=== PATIENT | female | born 2000 | race Caucasian/White ===

== ENCOUNTER 2020-07-27 12:12 | Emergency (ER) | payer MEDICAID ==
[~2020-07-27] VITALS: Ht 157.5 cm; Wt 86.5 kg
[2020-07-27 12:56] VITALS: BP 120/67
[2020-07-27 13:46] LABS: URINE HCG NEGATIVE (NEG)
[2020-07-27 13:54] LABS: COLOR,URINE YELLOW (Yellow); GLUCOSE, URINE NEGATIVE (Neg); KETONES,URINE NEGATIVE (Neg); LEUKOCYTE ESTERASE ,URINE NEGATIVE (Neg); NITRITES, URINE NEGATIVE (Neg); OCCULT BLOOD,URINE NEGATIVE (Neg); PH,URINE 8.5 (4.8-8.0); PROTEIN,URINE NEGATIVE (Neg)
[2020-07-27 14:02] LABS: CLARITY,URINE CLEAR (Clear); UA COLLECTION TYPE CLN CATCH MIDSTREAM
== END 2020-07-27 18:20 | disposition left against medical advice (07) ==
LOC: ER 12:12
DX: M54.5 Low back pain (principal)
CPT/HCPCS: 72100; 81003; 81025; 99284

== ENCOUNTER 2023-05-09 22:17 | Emergency (ER) | payer MEDICAID ==
[~2023-05-09] VITALS: Ht 157.5 cm; Wt 100.1 kg
[2023-05-09 22:26] VITALS: BP 99/76; PULSE 120; RESP 18; TEMP 98.8; O2SAT 98
[2023-05-09] MEDS ORDERED: LIDOcaine 1% 30ml preserv. free vial IJ STA (22:39)
== END 2023-05-09 23:42 | disposition home or self-care (01) ==
LOC: ER 22:18
DX: S31.811A Laceration without foreign body of right buttock, initial encounter (principal); X58.XXXA Exposure to other specified factors, initial encounter; Y93.89 Activity, other specified; Y92.89 Other specified places as the place of occurrence of the external cause; Y99.8 Other external cause status
CPT/HCPCS: 12002; 99284; A6449

== ENCOUNTER 2023-05-22 10:51 | Emergency (ER) | payer MEDICAID ==
[~2023-05-22] VITALS: Ht 157.5 cm; Wt 102.6 kg
[2023-05-22 11:54] VITALS: BP 112/68; PULSE 74; RESP 16; TEMP 98.4; O2SAT 99
== END 2023-05-22 11:56 | disposition home or self-care (01) ==
LOC: ER 10:51
DX: Z48.00 Encounter for change or removal of nonsurgical wound dressing (principal)
CPT/HCPCS: 99281

== ENCOUNTER 2024-01-30 11:42 | Emergency (ER) | payer MEDICAID ==
[~2024-01-30] VITALS: Ht 157.5 cm; Wt 105.1 kg
[2024-01-30 13:17] VITALS: BP 142/85; PULSE 80; RESP 16; TEMP 99; O2SAT 97
== END 2024-01-30 13:20 | disposition home or self-care (01) ==
LOC: ER 11:42
DX: S39.012A Strain of muscle, fascia and tendon of lower back, initial encounter (principal); G89.29 Other chronic pain; Z98.891 History of uterine scar from previous surgery; X58.XXXA Exposure to other specified factors, initial encounter; Y93.89 Activity, other specified; Y92.89 Other specified places as the place of occurrence of the external cause; Y99.8 Other external cause status
CPT/HCPCS: 72100; 99283

== ENCOUNTER 2024-02-04 16:06 | Emergency (ER) | payer MEDICAID ==
[~2024-02-04] VITALS: Ht 157.5 cm; Wt 108.0 kg
[2024-02-04] MEDS ORDERED: POLOS EACHEYE (17:09)
[2024-02-04 17:37] VITALS: BP 132/83; PULSE 73; RESP 17; TEMP 97.6; O2SAT 96
== END 2024-02-04 17:39 | disposition home or self-care (01) ==
LOC: ER 16:06
DX: H10.89 Other conjunctivitis (principal)
CPT/HCPCS: 99283

== ENCOUNTER 2024-02-08 16:49 | Emergency (ER) | payer MEDICAID ==
[~2024-02-08] VITALS: Ht 157.5 cm; Wt 103.6 kg
[~2024-02-08 16:49] MED LIST: POLOS EACHEYE
[2024-02-08] MEDS: polyvinyl alcohol eye drops 15ML BOTTLE LEFTEYE PRN (17:54)
[2024-02-08] MEDS ORDERED: MINE3.5O43 EACHEYE (18:01)
[2024-02-08 18:10] VITALS: BP 130/77; PULSE 80; RESP 16; TEMP 99.2; O2SAT 98
== END 2024-02-08 18:11 | disposition home or self-care (01) ==
LOC: ER 16:50
DX: S05.02XA Injury of conjunctiva and corneal abrasion without foreign body, left eye, initial encounter (principal); Z79.2 Long term (current) use of antibiotics; X58.XXXA Exposure to other specified factors, initial encounter; Y93.89 Activity, other specified; Y92.89 Other specified places as the place of occurrence of the external cause; Y99.8 Other external cause status
CPT/HCPCS: 99282

== ENCOUNTER 2024-08-29 21:59 | Emergency (ER) | payer MEDICAID ==
[~2024-08-29] VITALS: Ht 157.5 cm; Wt 106.2 kg
[~2024-08-29 21:59] MED LIST changes: +MINE3.5O43 EACHEYE; -POLOS EACHEYE
[2024-08-29 22:06] VITALS: BP 133/87; PULSE 97; RESP 18; TEMP 98.1; O2SAT 98
[2024-08-29] MEDS ORDERED: AZIT250T83 PO (23:54)
[2024-08-29] MEDS ORDERED: PRED50TA PO (23:54)
== END 2024-08-30 00:08 | disposition home or self-care (01) ==
LOC: ER 22:00
DX: J03.90 Acute tonsillitis, unspecified (principal); R05.9 Cough, unspecified; Z79.899 Other long term (current) drug therapy
CPT/HCPCS: 99283

== ENCOUNTER 2024-09-05 10:33 | Emergency (ER) | payer MEDICAID ==
[~2024-09-05] VITALS: Ht 157.5 cm; Wt 103.5 kg
[~2024-09-05 10:33] MED LIST changes: +PRED50TA PO
[2024-09-05 10:43] VITALS: BP 139/87; PULSE 98; RESP 16; TEMP 98.2; O2SAT 98
[2024-09-05] MEDS ORDERED: PRED50TA PO (11:36)
== END 2024-09-05 11:47 | disposition home or self-care (01) ==
LOC: ER 10:34
DX: L23.9 Allergic contact dermatitis, unspecified cause (principal)
CPT/HCPCS: 99283

== ENCOUNTER 2024-09-09 11:08 | Emergency (ER) | payer MEDICAID ==
[~2024-09-09] VITALS: Ht 157.5 cm; Wt 105.9 kg
[2024-09-09 11:11] VITALS: TEMP 97
[2024-09-09] MEDS ORDERED: KEN0.1O TOP (14:00)
[2024-09-09] MEDS ORDERED: DIPH25CA83 PO (14:00)
[2024-09-09] MEDS ORDERED: FAMO-129 PO (14:00)
[2024-09-09] MEDS ORDERED: PRED20TA PO (14:00)
[2024-09-09] MEDS: dexamethasone sod phosphate 10mg/ml inj PO STA (14:14)
[2024-09-09] MEDS: diphenhydrAMINE 50 mg/ml inj IM ONE (14:15)
[2024-09-09] MEDS: famotidine 10mg tablet PO STA (14:22)
[2024-09-09] MEDS: famotidine 20mg tablet PO ONE (14:26)
[2024-09-09 15:38] VITALS: BP 126/79; PULSE 63; RESP 14; O2SAT 97
[2024-09-09] MEDS ORDERED: famotidine 20mg tablet PO SCH ×2 (20:00)
== END 2024-09-09 14:25 | disposition home or self-care (01) ==
LOC: ER 11:08
DX: L23.89 Allergic contact dermatitis due to other agents (principal); Z79.899 Other long term (current) drug therapy
CPT/HCPCS: 96372; 99283; J1100; J1200